=== PATIENT | female | born 1985 | race Caucasian/White ===

== ENCOUNTER 2019-08-31 04:12 | Outpatient (CLI) | payer BC, SELFPAY ==
[2019-08-31 09:49] LABS: Absolute Basophil Count 0.03 k/cumm (0.0-0.2); Absolute Eosinophil Count 0.16 k/cumm (0.0-0.7); Absolute Lymphocyte Count 1.63 k/cumm (1.2-3.4); Absolute Monocyte Count 0.42 k/cumm (0.11-0.7); Absolute Neutrophil Count 2.38 k/cumm (1.2-6.7); Basophils % 0.6; Eosinophils % 3.5; HCT 37.8 % (36.0-46.0); HGB 12.8 g/dL (12.0-15.5); Lymphocytes % 35.3; Mean Corp. HGB Concentration 33.9 g/dL (32.0-36.0); Mean Corpuscular Hemoglobin 31.1 pg (27.0-33.0); Mean Platelet Volume 9.9 fL (8.0-11.0); Monocytes % 9.1; Neutrophils % 51.5; Platelet Count 284 x1000/uL (130-400); RBC 4.11 m/cumm (4.00-5.20); RBC Distribution Width 13.2 % (11.7-14.6); White Blood Cell Count 4.62 k/cumm (4.4-10.8)
[2019-08-31 10:41] LABS: Iron 116 ug/dL (50-170); Total Iron Binding Capacity 217 ug/dL (250-450); Transferrin Sat 53 % (15-50)
[2019-08-31 11:54] LABS: ALT 17 U/L (14-59); AST 12 U/L (15-37); Albumin 4.1 g/dL (3.4-5.0); Alkaline Phosphatase 68 U/L (46-116); Anion Gap 12.5 mmol/L (3-11); BUN 13 mg/dL (7-18); Bilirubin, Total 0.6 mg/dL (0.2-1.0); CO2 24.5 mmol/L (21.0-32.0); CREATININE 0.87 mg/dL (0.55-1.02); Chloride 102 mmol/L (98-107); Ferritin 57 ng/mL (8-252); Glucose 90 mg/dL (74-106); Sodium 139 mmol/L (136-145); TSH (W/Ref FT4) 1.58 uIU/mL (0.36-3.74); Total Protein 7.2 g/dL (6.4-8.2)
[2019-08-31 15:55] LABS: Magnesium 2.2 mg/dL (1.8-2.4)
[2019-08-31 17:52] LABS: T3,Free 3.8 pg/mL (2.8-5.3)
[2019-09-01 11:09] LABS: Thyroperoxidase Antibody <28 U/mL (<=60)
[2019-09-01 23:44] LABS: Zinc, Serum 0.75 mcg/mL (0.66-1.10)
== END 2019-08-31 04:32 ==
PROVIDERS: PCP Naturopath; Visit Provider Naturopath
DX: D50.9 Iron deficiency anemia, unspecified (principal); F41.9 Anxiety disorder, unspecified; R53.83 Other fatigue; R42 Dizziness and giddiness; J45.30 Mild persistent asthma, uncomplicated; J30.9 Allergic rhinitis, unspecified; E66.3 Overweight; Z13.1 Encounter for screening for diabetes mellitus; I10 Essential (primary) hypertension; E11.65 Type 2 diabetes mellitus with hyperglycemia; E06.3 Autoimmune thyroiditis; N95.1 Menopausal and female climacteric states; R00.2 Palpitations; I70.91 Generalized atherosclerosis; E55.9 Vitamin D deficiency, unspecified; E01.8 Other iodine-deficiency related thyroid disorders and allied conditions
CPT/HCPCS: 36415; 80053; 82947; 84520; 85305; 82040; 82247; 82310; 82435; 82565; 82728; 83036; 83540; 83550; 83735; 84132; 84155; 84295; 84443; 84450; 84460; 84481; 84630; 85025; 86376